=== PATIENT | female | born 1965 | race African-American/Black ===

== ENCOUNTER 2019-09-22 15:07 | Outpatient (CLI) | payer BC ==
--- NOTE | 2019-09-22 16:02 | ULT ---
Exam: Thyroid ultrasound HISTORY: Thyroid nodule COMPARISON: None Thyroid isthmus measures 0.42 cm Right thyroid lobe measures 4.9 x 1.5 x 1.8 cm Left thyroid lobe measures 4.6 x 1.8 x 2.1 cm 1.1 x 0.6 x 0.9 cm solid hypoechoic nodule in the right thyroid lobe. Smaller subcentimeter nodules a re noted 2.1 x 1.2 x 1.5 cm solid nodule in the left thyroid lobe. Additional smaller nodules are noted left t hyroid lobe. IMPRESSION: Solid nodules in the left or right thyroid lobe. Largest solid nodule in the left thyroid lobe has a TI-RADS calculator score of TR 4, moderately suspicious. Fine-needle aspiration is recommended. Remaining nodule should be followed up one year. Transcribed Date/Time: 09/22/2019 4:18 PM
== END 2019-09-22 15:08 | disposition home or self-care (01) ==
LOC: SCSULT 15:07
PROVIDERS: ATTEND Student in an Organized Health Care Education/Training Program
DX: E04.2 Nontoxic multinodular goiter (principal)
CPT/HCPCS: 76536

== ENCOUNTER 2019-10-17 12:28 | Day surgery (SDC) | payer BC ==
[2019-10-17] MEDS ORDERED: Sodium Bicarbonate 2.5 MEQ/5 ML VIAL ONE (12:44)
[2019-10-17 13:03] VITALS: BMI 22.7
--- NOTE | 2019-10-17 14:13 | ULT ---
EXAM: US Thyroid Needle Bx PROVIDED CLINICAL HISTORY: TI RADS level 4 nodule left lobe of thyroid gland. Fine-needle aspiration was recommended. COMPARISON: Thyroid ultrasound on 10/17/2019. TECHNIQUE: The procedure including the risks and complications were explained to the patient, and informed conse nt was obtained. Patient was placed on the sonography table in a supine position. Limited sonographic evaluation of the left lobe of thyroid gland was performed. The dominant heterogeneous no dule left lobe of thyroid gland was localized. The left neck was meticulously prepped and draped in usual sterile fashion. The skin and subcutaneous tissues were infiltrated with buffered 1% lidocaine for local anesthesia at the intended puncture site. Utilizing concurrent real-time ultrasound guidance, a total of four 25-gauge fine-needle aspiration specimens were obtained. Hemostasis was achieved with direct pressure. Patient tolerated the procedure well and without immedi ate complication. An icepack was given to the patient to place at site of fine-needle aspiration. Patient was briefly monitored in radiology nurses holding area prior to discharge. IMPRESSION: Technically successful ultrasound-guided fine-needle aspiration of a dominant heterogeneous nodule le ft lobe of the thyroid gland.
== END 2019-10-17 13:40 | disposition home or self-care (01) ==
LOC: ULT 12:28
PROVIDERS: ATTEND Student in an Organized Health Care Education/Training Program
DX: E04.1 Nontoxic single thyroid nodule (principal); E78.00 Pure hypercholesterolemia, unspecified; I10 Essential (primary) hypertension; D64.9 Anemia, unspecified; J45.909 Unspecified asthma, uncomplicated; J06.0 Acute laryngopharyngitis; F41.9 Anxiety disorder, unspecified; M19.90 Unspecified osteoarthritis, unspecified site; Z79.899 Other long term (current) drug therapy; Z91.048 Other nonmedicinal substance allergy status
CPT/HCPCS: 60100; 76942; 88173

== ENCOUNTER 2019-11-29 06:16 | Day surgery (SDC) | payer BC ==
[2019-11-28 10:58] VITALS: BMI 27.1
--- NOTE | 2019-11-28 13:19 | HP ---
HISTORY OF PRESENT ILLNESS: Ms. 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 She has had this for many months and is concerned. 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 She brings an MRI from [facility], that reveals severe central canal stenosis at C5-C6 with some early signal change within the cord itself. She denies any clumsiness, falls, imbalance, but does feel like perhaps she drops things from [id number]. This could just be early signs of myelopathy. She hopes to discuss treatment options. PAST MEDICAL HISTORY: Anxiety, arthritis, asthma, seasonal allergies, hypercholesterolemia, migraine headaches, and hypertension. PAST SURGICAL HISTORY: Hysterectomy. CURRENT MEDICATIONS: 1. Lyrica. 2. Lisinopril/hydrochlorothiazide. 3. Rosuvastatin. 4. Buspirone. ALLERGIES: TO LATEX. PHYSICAL EXAMINATION: The patient is alert and oriented x3. Gait is normal. No ataxia. Upper extremity motor exam is normal. Negative Spurling's bilaterally. ASSESSMENT: Cervical spinal stenosis. PLAN: Dr. Jorgensen met with the patient, reviewed imaging, advocated for C5-C6 ACDF. He explained the patient risks, benefits, and alternatives to the procedure. The patient expressed understanding and elected to move forward with surgery as discussed. I do believe the patient is mentally competent and capable of making medical decisions for herself. We will move forward with surgery as planned. Job ID: [id number]
[2019-11-29] MEDS ORDERED: Thrombin 5000 UNITS/5 ML VIAL ONE (06:41)
[2019-11-29] MEDS ORDERED: Fentanyl 100 MCG/2 ML VIAL ONE ×3 (07:15→10:57)
[2019-11-29] MEDS ORDERED: Lidocaine 2% Jelly 5 ML TUBE ONE (07:15)
[2019-11-29] MEDS ORDERED: Dexamethasone 20 MG/5 ML VIAL ONE (09:26)
[2019-11-29] MEDS ORDERED: PROPOFOL 200 MG/20 ML VIAL ONE (09:26)
[2019-11-29] MEDS ORDERED: PHENYLEPHRINE-NS 100 MCG/ML 10 ML SYRINGE ONE (09:26)
[2019-11-29] MEDS ORDERED: Ondansetron PF 4 MG/2 ML Vial ONE (09:26)
[2019-11-29] MEDS ORDERED: Glycopyrrolate 0.2 MG/ML 5 ML SYRINGE ONE (09:26)
[2019-11-29] MEDS ORDERED: Ketorolac Tromethamine 30 MG/ML VIAL ONE (09:26)
[2019-11-29] MEDS ORDERED: Rocuronium Bromide 10 MG/ML (10ML VIAL) ONE (09:26)
[2019-11-29] MEDS ORDERED: Lidocaine 1% PF 5 ML VIAL ONE (09:26)
--- NOTE | 2019-11-29 09:45 | OP ---
DATE OF PROCEDURE: 11/29/2019 HAND STRIPPER: Chintan Frank PA-C INDICATION: Pain and numbness and prevent neurologic decline. DIAGNOSIS: Cervical stenosis C5-C6 with T2 signal change. PROCEDURE PERFORMED: Anterior cervical diskectomy and fusion, C5-C6. ANESTHESIA: General. DESCRIPTION OF PROCEDURE: The patient was brought into the operating room and placed under general anesthesia. She was placed on table in supine position. A transverse incision was planned over the lateral aspect of the neck on the right. After prepping and draping and after an appropriate operative pause, the incision was created. The underlying platysma muscle was identified and incised. A blunt tissue plane anterior to the sternocleidomastoid muscle was used to gain access to the prevertebral space. Self-retaining retractors were then placed. After confirming the appropriate level with C-arm fluoroscopy, an annulotomy was performed at the C5-C6 disk space. All disk material as well as anterior and posterior osteophytes were removed. After completing the decompression, a 6-mm lordotic PEEK cage packed with allograft and autograft material was placed within the interbody space. An anterior cervical plate was then fashioned to the front of spine and secured with a total of 4 fixed screws. Midline and lateral structures were inspected and found to be free from significant trauma. The wound was irrigated. Hemostasis was maintained throughout. The wound was then closed in anatomic layers and a pressure dressing was applied. There were no known procedural complications. Job ID: [id number]
[2019-11-29] MEDS ORDERED: HYDROcodone/Acetaminophen 5/325 mg Tablet ONE (12:51)
== END 2019-11-29 14:28 | disposition home or self-care (01) ==
LOC: SDC 06:16
PROVIDERS: ATTEND Neurological Surgery
DX: M48.02 Spinal stenosis, cervical region (principal); M47.22 Other spondylosis with radiculopathy, cervical region; F41.9 Anxiety disorder, unspecified; J45.909 Unspecified asthma, uncomplicated; E78.00 Pure hypercholesterolemia, unspecified; I10 Essential (primary) hypertension; G43.909 Migraine, unspecified, not intractable, without status migrainosus; Z79.899 Other long term (current) drug therapy; Z91.040 Latex allergy status; Z91.048 Other nonmedicinal substance allergy status
CPT/HCPCS: 76000; C1713; C1776; J0690; J1100; J1885; J2001; J2405; J2704; J3010